=== PATIENT | male | born 1945 | race Caucasian/White ===

== ENCOUNTER 2024-09-12 12:39 | Observation (INO) ==
--- NOTE | 2024-09-12 12:44 | EKG ---
Test Reason : chest pain Blood Pressure : */* mmHG Vent. Rate : 105 BPM Atrial Rate : 105 BPM P-R Int : 216 ms QRS Dur : 130 ms QT Int : 368 ms P-R-T Axes : * -79 81 degrees QTc Int : 486 ms Sinus tachycardia with 1st degree AV block with occasional premature ventricular complexes and fusion complexes Left axis deviation Right bundle branch block Abnormal ECG No previous ECGs available Confirmed by Kelvin Nolen MD ([id number]) on 09/13/2024 7:45:49 AM Referred By: Confirmed By: Kelvin Nolen MD
[2024-09-12 13:21] LABS: BASOPHILS # (AUTO) 0.1 X10^3/uL (0.0-0.1); BASOPHILS % (AUTO) 0.8 % (0.2-1.0); EOSINOPHILS # (AUTO) 0.2 x10^3/uL (0.0-0.2); EOSINOPHILS % (AUTO) 2.7 % (0.9-2.9); HEMATOCRIT 46.8 % (42.0-54.0); HEMOGLOBIN 16.4 g/dL (13.5-18.0); LYMPHOCYTES # (AUTO) 1.6 X10^3/uL (1.3-2.9); LYMPHOCYTES % (AUTO) 17.9 % (21.0-51.0); MEAN CORPUSCULAR HEMOGLOBIN 33.1 pg (27.0-34.0); MEAN CORPUSCULAR HGB CONC 35.1 g/dL (33.0-35.0); MEAN CORPUSCULAR VOLUME 94.3 fL (80.0-100.0); MEAN PLATELET VOLUME 8.4 fL (7.4-11.0); MONOCYTES # (AUTO) 0.8 x10^3/uL (0.3-0.8); MONOCYTES % (AUTO) 8.7 % (0.0-13.0); NEUTROPHILS # (AUTO) 6.3 x10^3/uL (2.2-4.8); NEUTROPHILS % (AUTO) 69.9 % (42.0-75.0); PLATELET COUNT 387 X10^3/uL (150.0-450.0); RED BLOOD COUNT 4.96 X10^6/uL (4.7-6.0); RED CELL DISTRIBUTION WIDTH 12.5 % (11.6-16.5)
--- NOTE | 2024-09-12 13:22 | RAD ---
EXAM:Portable chestHISTORY:Chest painCOMPARISON:NoneFINDINGS:Heart size is normal. [place] are normal. Mild hyperinflation is present. Lung martinez are clear. No pleural effusions identified. Bony thorax is unremarkable.IMPRESSION:Lungs are mildly hyperinflated but clearTHIS IS AN ELECTRONICALLY VERIFIED FINAL REPORT09/12/2024 1:19 PM - Electronically signed by Tobin Sen MD
[2024-09-12 13:23] LABS: INR 1.16 (0.8-1.3)
[2024-09-12 13:29] LABS: ALANINE AMINOTRANSFERASE 353 Units/L (12-78); ALBUMIN 3.7 g/dL (3.4-5.0); ALKALINE PHOSPHATASE 265 Units/L (46-116); ASPARTATE AMINO TRANSFERASE 237 Units/L (15-37); BLOOD UREA NITROGEN 26 mg/dL (7-18); CALCIUM 9.3 mg/dL (8.5-10.1); CHLORIDE 98 mmol/L (98-107); CREATININE 2.52 mg/dL (0.70-1.30); GLUCOSE 109 mg/dL (65-99); MAGNESIUM 2.1 mg/dL (2.0-2.9); POTASSIUM 3.7 mmol/L (3.5-5.1); SODIUM 137 mmol/L (136-145); TOTAL PROTEIN 7.9 g/dL (6.4-8.2); eGFR NON BLACK RACES 26 (>60)
[2024-09-12] MEDS: MYLICON TAB 80 MG CHEW PO ONE (14:38)
--- NOTE | 2024-09-12 14:46 | CT ---
EXAM: CT CHEST, ABDOMEN, AND PELVIS WITHOUT CONTRAST HISTORY: LUQ abd pain; ; CHEST PAIN; COMPARISON: None. TECHNIQUE: Axial CT images were obtained through the chest, abdomen, and pelvis without contrast. Coronal refor matted images were included. All CT scans at this facility use dose modulation, iterative reconstruction, and/or weight based dosi ng when appropriate to reduce radiation dose to as low as reasonably achievable. FINDINGS: Please note that without the use of intravenous contrast, evaluation of organ parenchyma is limited. CHEST: SUPPORT DEVICES: None HEART, VESSELS, AND MEDIASTINUM: Athero sclerotic disease in the coronary vessels. LYMPH NODES: No pathologically enlarged nodes. LUNGS AND PLEURA: Lungs show minimal reticular fibrotic changes at the left lung base. In the right upper lobe, there are scattered areas of scarring and nodularity likely related to previous granuloma tous disease. Noncalcified right upper lobe nodule measures 5 mm image 17. Ground-glass nodule righ t lung base shows a size of 8 mm AIRWAYS: Within normal limits. ABDOMEN: LIVER: Hepatic steatosis GALLBLADDER: Absent SPLEEN: Within normal limits. PANCREAS: Within normal limits. KIDNEYS: Within normal limits. ADRENAL GLANDS: Within normal limits. GI TRACT: Moderate colonic stool. Sigmoid colonic diverticulosis LYMPH NODES: No abnormally enlarged nodes VESSELS: Moderate athero sclerotic disease PERITONEUM / RETROPERITONEUM: No free gas PELVIS: BLADDER: Within normal limits. GENITALS: Prostate is enlarged BONES: Multilevel degenerative changes are seen throughout the spine IMPRESSION: No definite acute abnormality in the chest, abdomen, or pelvis to correlate with the patient's histor y of pain. There are some chronic lung changes noted which favor prior granulomatous disease which a re particularly evident in the right upper lobe. There are some small subcentimeter nodules present. Follow-up as below based on the ground-glass nodule in the right lower lobe. [facility] [employer] P[facility] NODULE RECOMMENDATIONS GROUND GLASS CT in 6 to 12 months to confirm persistence, then CT every 2 years until 5 years. If grows or increasingly solid, consider resection. THIS IS AN ELECTRONICALLY VERIFIED FINAL REPORT 09/12/2024 2:43 PM - Electronically signed by Lobito Araujo MD
[2024-09-12 16:16] LABS: BILIRUBIN,URINE NEGATIVE (NEGATIVE); BLOOD/HEMOGLOBIN,URINE NEGATIVE (NEGATIVE); GLUCOSE, URINE NEGATIVE (NEGATIVE); KETONES,URINE 1+ (NEGATIVE); LEUKOCYTE ESTERASE ,URINE NEGATIVE (NEGATIVE); NITRITES,URINE NEGATIVE (NEGATIVE); PROTEIN,URINE 2+ (NEGATIVE); UROBILINOGEN,URINE NORMAL (NORMAL)
[2024-09-12 16:23] LABS: APPEARANCE,URINE CLEAR (CLEAR); COLOR,URINE YELLOW (YELLOW)
[2024-09-12 16:26] LABS: BACTERIA,URINE NEGATIVE /HPF (NEGATIVE); RBC,URINE NONE SEEN /HPF (0-3); SQUAMOUS EPITHELIAL CELL,UR RARE /HPF (NEGATIVE)
--- NOTE | 2024-09-12 16:43 | DR.CP ---
HPI Time Seen Time Seen by Provider: 09/12/24 13:03 PCP Primary Care Physician: Mikie Drewhear Complaint Chief Complaint Doctor Comments: 79-year-old male, history of atrial fibrillation with prior cardiac ablation, no history of coronary artery disease, complains of intermittent left-sided chest pain for the past 3 hours prior to arrival. Denies radiation of pain. Denies dyspnea. Denies other complaints. Chief Complaint:: Pt presents to ED holding left chest/under left breast. He and state that since Sep 03 he has been having intermittent CP, doesn't radiate to any other location, describes as "stabbed with ice pick". Pt also c/o weakness w/ recent falls and "fast heartrate". Pt has hx of A.Fib w/ ablations x3 in the past. Pt denies SOB (other than his COPD related breathing issues), denies abdominal pain Self Treatment fo Chief Complaint: has not taken any of his meds this AM COVID-19 Coronavirus risk:travel/contact w/high risk person: No Has patient experienced Coronavirus symptoms: No Source History Provided: Patient and Significant Other Mode of Arrival Mode of Arrival: Ambulatory Timing Onset of Chief Complaint: 09/03/24 Associated Signs and Symptoms Associated Signs and Symptoms: None PMH PMH Past Medical History: Yes Past Medical History: COPD and Hypertension Past Medical History Comment: A.Fib, IBS Past Surgical History: Yes Surgical History: Cholecystectomy and Other Past Surgical History Comment: cardiac ablation, back surgery Family History History of Family Medical Conditions: Yes Social History Does patient currently use any type of tobacco product: No Have you used tobacco products in the last 12 months: No Does any household member use tobacco: No Alcohol Use: Occasionally Do you use any recreational Drugs:: No Lives With: Spouse Lives Where: Home Travel Risk Coronavirus risk:travel/contact w/high risk person: No Has patient experienced Coronavirus symptoms: No Infectious screening In the last 2 months have you had wt loss of >10#?: NO Have you had fever, night sweats or hemotysis?: No Have you traveled outside the country in the last 6 months?: No Isolation: Standard ROS Review of Systems Cardiovascular: Chest Pain All Other Systems: Reviewed and Negative PE Vitals Vitals: Vital Signs Temperature 97.8 F Pulse Rate 75 Pulse Rate 79 Pulse Rate 77 Pulse Rate 103 Pulse Rate 75 Pulse Rate 97 Pulse Rate 102 Pulse Rate 112 Pulse Rate 75 Pulse Rate 76 Pulse Rate 78 Pulse Rate 77 Pulse Rate 102 Pulse Rate 106 Pulse Rate 106 Pulse Rate 112 Pulse Rate 112 Respiratory Rate 23 Respiratory Rate 25 Respiratory Rate 21 Respiratory Rate 27 Respiratory Rate 17 Respiratory Rate 30 Respiratory Rate 27 Respiratory Rate 25 Respiratory Rate 15 Respiratory Rate 42 Respiratory Rate 16 Respiratory Rate 21 Respiratory Rate 26 Respiratory Rate 26 Respiratory Rate 29 Respiratory Rate 25 Respiratory Rate 21 Blood Pressure 129/71 Blood Pressure 128/80 Blood Pressure 121/67 Blood Pressure 142/80 Blood Pressure 155/83 Blood Pressure 131/68 Blood Pressure 120/82 Blood Pressure 130/67 Blood Pressure 130/67 O2 Sat by Pulse Oximetry 94 O2 Sat by Pulse Oximetry 95 O2 Sat by Pulse Oximetry 95 O2 Sat by Pulse Oximetry 90 O2 Sat by Pulse Oximetry 93 O2 Sat by Pulse Oximetry 94 O2 Sat by Pulse Oximetry 92 O2 Sat by Pulse Oximetry 92 O2 Sat by Pulse Oximetry 94 O2 Sat by Pulse Oximetry 92 O2 Sat by Pulse Oximetry 93 O2 Sat by Pulse Oximetry 92 O2 Sat by Pulse Oximetry 93 O2 Sat by Pulse Oximetry 93 O2 Sat by Pulse Oximetry 95 O2 Sat by Pulse Oximetry 92 O2 Sat by Pulse Oximetry 95 General Limitations: No Limitations General Appearance: Alert and In No Apparent Distress Head Head Exam: Normal Inspection Eyes Eye exam: Normal Appearance ENT ENT Exam: Normal Exam Chest Chest Inspection: Normal Inspection Respiratory Respiratory Exam: Normal Lung Sounds Bilat Cardiovascular Cardiovascular Exam: Regular Rate and Normal Rhythm Pulse: Normal Edema: Normal Abdominal Exam Abdominal Exam: Normal Inspection, Normal Bowel Sounds and Soft Extremities Extremities Exam: Normal Inspection Back Back Exam: Normal Inspection Neurologic Neurological Exam: Alert and Oriented X3 Psychiatric Psychiatric Exam: Normal Affect and Normal Mood Skin Skin Exam: Warm, Dry, Intact and Normal Color ROR Labs Reviewed 09/12/24 12:54 09/12/24 12:54 Laboratory: WBC 9.0 X10^3/uL (3.6-10.0) 09/12/24 12:54 RBC 4.96 X10^6/uL (4.7-6.0) 09/12/24 12:54 Hgb 16.4 g/dL (13.5-18.0) 09/12/24 12:54 Hct 46.8 % (42.0-54.0) 09/12/24 12:54 MCV 94.3 fL (80.0-100.0) 09/12/24 12:54 MCH 33.1 pg (27.0-34.0) 09/12/24 12:54 MCHC 35.1 g/dL (33.0-35.0) H 09/12/24 12:54 RDW 12.5 % (11.6-16.5) 09/12/24 12:54 Plt Count 387 X10^3/uL (150.0-450.0) 09/12/24 12:54 MPV 8.4 fL (7.4-11.0) 09/12/24 12:54 Neut % (Auto) 69.9 % (42.0-75.0) 09/12/24 12:54 Lymph % (Auto) 17.9 % (21.0-51.0) L 09/12/24 12:54 [place] % (Auto) 8.7 % (0.0-13.0) 09/12/24 12:54 Eos % (Auto) 2.7 % (0.9-2.9) 09/12/24 12:54 Baso % (Auto) 0.8 % (0.2-1.0) 09/12/24 12:54 Neut # (Auto) 6.3 x10^3/uL (2.2-4.8) H 09/12/24 12:54 Lymph # (Auto) 1.6 X10^3/uL (1.3-2.9) 09/12/24 12:54 [place] # (Auto) 0.8 x10^3/uL (0.3-0.8) 09/12/24 12:54 Eos # (Auto) 0.2 x10^3/uL (0.0-0.2) 09/12/24 12:54 Baso # (Auto) 0.1 X10^3/uL (0.0-0.1) 09/12/24 12:54 Absolute Nucleated RBC 0.1 /100WBC 09/12/24 12:54 PT 14.6 SECONDS (11.8-14.3) 09/12/24 12:54 INR Target Range - 09/12/24 12:54 INR 1.16 (0.8-1.3) 09/12/24 12:54 APTT 34.2 SECONDS (22.9-36.5) 09/12/24 12:54 PTT Comment - 09/12/24 12:54 Sodium 137 mmol/L (136-145) 09/12/24 12:54 Corrected Sodium TNP 09/12/24 12:54 Potassium 3.7 mmol/L (3.5-5.1) 09/12/24 12:54 Chloride 98 mmol/L (98-107) 09/12/24 12:54 Carbon Dioxide 27.0 mmol/L (21-32) 09/12/24 12:54 BUN 26 mg/dL (7-18) H 09/12/24 12:54 Creatinine 2.52 mg/dL (0.70-1.30) H 09/12/24 12:54 Est GFR (MDRD) Af Amer 32 (>60) L 09/12/24 12:54 Est GFR (MDRD) Non-Af 26 (>60) L 09/12/24 12:54 Glucose 109 mg/dL (65-99) H 09/12/24 12:54 Calcium 9.3 mg/dL (8.5-10.1) 09/12/24 12:54 Corrected Calcium TNP 09/12/24 12:54 Magnesium 2.1 mg/dL (2.0-2.9) 09/12/24 12:54 Total Bilirubin 1.80 mg/dL (0.2-1.0) H 09/12/24 12:54 AST 237 Units/L (15-37) H 09/12/24 12:54 ALT 353 Units/L (12-78) H 09/12/24 12:54 Alkaline Phosphatase 265 Units/L (46-116) H 09/12/24 12:54 Troponin I High Sens 11.5 ng/L (4.0-60.0) 09/12/24 12:54 Total Protein 7.9 g/dL (6.4-8.2) 09/12/24 12:54 Albumin 3.7 g/dL (3.4-5.0) 09/12/24 12:54 Globulin 4.2 g/dL (2.5-4.5) 09/12/24 12:54 Albumin/Globulin Ratio 0.9 Ratio (1.1-2.1) L 09/12/24 12:54 Specimen Type Clean catch urine 09/12/24 16:00 Urine Color Yellow (YELLOW) 09/12/24 16:00 Urine Appearance Clear (CLEAR) 09/12/24 16:00 Urine pH 5.0 (5.0 - 8.0) 09/12/24 16:00 Ur Specific [place] 1.010 (1.000-1.030) 09/12/24 16:00 Urine Protein 2+ (NEGATIVE) 09/12/24 16:00 Urine Glucose (UA) Negative (NEGATIVE) 09/12/24 16:00 Urine Ketones 1+ (NEGATIVE) 09/12/24 16:00 Urine Blood Negative (NEGATIVE) 09/12/24 16:00 Urine Nitrite Negative (NEGATIVE) 09/12/24 16:00 Urine Bilirubin Negative (NEGATIVE) 09/12/24 16:00 Urine Urobilinogen Normal (NORMAL) 09/12/24 16:00 Ur Leukocyte Esterase Negative (NEGATIVE) 09/12/24 16:00 Urine RBC None seen /HPF (0-3) 09/12/24 16:00 Urine WBC None seen /HPF (0-5) 09/12/24 16:00 Ur Squamous Epith Cells Rare /HPF (NEGATIVE) 09/12/24 16:00 Urine Bacteria Negative /HPF (NEGATIVE) 09/12/24 16:00 Ur Culture Indicated? No/not indicated 09/12/24 16:00 Opioid Opioid Risk Tool Age (Ion box if 16-45): No History of Preadolescent Sexual Abuse: No Total: 0 Total Score Risk Category: Low Risk Copyright: Hai DÍAZ predicting aberrant behaviors Discharge Plan Discharge Plan Patient Disposition: HOME, SELF-CARE Condition: Stable Prescriptions: No Action ondansetron HCl 4 mg tablet 4 mg PO TID PRN telmisartan-hydrochlorothiazid 40-12.5 mg Tablet 1 tab PO BID fluticasone propion-salmeterol 250-50 mcg/dose Blister With Device 1 inh INHALATION BID metoprolol tartrate 25 mg Tablet 25 mg PO BID Eliquis 2.5 mg Tablet 2.5 mg PO BID Orders to Discharge Patient Discharge Orders: Transfer (Routine); Ordered 09/12/24 Ordered By: Omar White
--- NOTE | 2024-09-12 18:17 | EKG ---
Test Reason : chest pain Blood Pressure : */* mmHG Vent. Rate : 103 BPM Atrial Rate : 55 BPM P-R Int : * ms QRS Dur : 112 ms QT Int : 326 ms P-R-T Axes : * -71 -12 degrees QTc Int : 427 ms suspect afib but baseline artifact makes interpretation hard pvcs Left axis deviation Low voltage QRS Inferior infarct , age undetermined Anterolateral infarct , age undetermined Abnormal ECG When compared with ECG of 12-SEP-2024 12:40, (Unconfirmed) Significant changes have occurred Confirmed by Kelvin Nolen MD ([id number]) on 09/13/2024 7:42:11 AM Referred By: Confirmed By: Kelvin Nolen MD
[2024-09-12 18:35] VITALS: BMI 28.6
--- NOTE | 2024-09-12 19:34 | EKG ---
Test Reason : Chest Pain Blood Pressure : */* mmHG Vent. Rate : 82 BPM Atrial Rate : 74 BPM P-R Int : 212 ms QRS Dur : 124 ms QT Int : 402 ms P-R-T Axes : * -42 43 degrees QTc Int : 469 ms Sinus rhythm with 1st degree AV block with frequent premature ventricular complexes Left axis deviation Possible Lateral infarct (cited on or before 12-SEP-2024) Abnormal ECG When compared with ECG of 12-SEP-2024 17:57, (Unconfirmed) Significant changes have occurred Confirmed by Kelvin Nolen MD ([id number]) on 09/13/2024 7:39:23 AM Referred By: Confirmed By: Kelvin Nolen MD
[2024-09-12] MEDS: Atrovent NEB TX 0.02% NEB SCH (20:51)
[2024-09-12] MEDS: PULMICORT NEB TX 0.5 MG NEB SCH (20:52)
[2024-09-12] MEDS ORDERED: PATIENT'S HOME MEDICATION (Fluticasone Propion-Salmeterol 250-50 mcg/dose Blister With Dev IN SCH (21:00)
[2024-09-12] MEDS ORDERED: TELMISARTAN HYDROCHLOROTHIAZID PO SCH (21:00)
[2024-09-12] MEDS ORDERED: PULMICORT NEB TX 0.5 MG NEB SCH (21:00)
[2024-09-12] MEDS ORDERED: PATIENT'S HOME MEDICATION (Apixaban [Eliquis] 2.5 mg Tablet) PO SCH (21:00)
[2024-09-12] MEDS: ELIQUIS PO SCH (21:03)
[2024-09-12] MEDS: LOPRESSOR TAB 25 MG PO SCH (21:03)
[2024-09-13] MEDS: ZOFRAN TAB 4 MG PO PRN (00:22)
[2024-09-13] MEDS ORDERED: ROBITUSSIN DM PO PRN (00:27)
[2024-09-13] MEDS ORDERED: TUSSIONEX PENNKINETIC SUSP PO PRN (00:27)
--- NOTE | 2024-09-13 01:16 | EKG ---
Test Reason : chest pain Blood Pressure : */* mmHG Vent. Rate : 72 BPM Atrial Rate : 72 BPM P-R Int : 250 ms QRS Dur : 136 ms QT Int : 456 ms P-R-T Axes : -22 -76 25 degrees QTc Int : 499 ms Sinus rhythm with 1st degree AV block with fusion complexes Left axis deviation ant mi/prwp nsivcd Abnormal ECG When compared with ECG of 12-SEP-2024 19:13, (Unconfirmed) fusion complexes are now present premature ventricular complexes are no longer present Borderline criteria for Lateral infarct are no longer present Confirmed by Kelvin Nolen MD ([id number]) on 09/13/2024 7:36:07 AM Referred By: Confirmed By: Kelvin Nolen MD
--- NOTE | 2024-09-13 05:28 | EKG ---
Test Reason : Chest Pain Blood Pressure : */* mmHG Vent. Rate : 78 BPM Atrial Rate : 78 BPM P-R Int : 206 ms QRS Dur : 138 ms QT Int : 430 ms P-R-T Axes : 69 -64 84 degrees QTc Int : 490 ms Sinus rhythm with occasional and consecutive premature ventricular complexes and fusion complexes first degree avblock Left axis deviation Nonspecific intraventricular block Possible Anterolateral infarct , age undetermined Abnormal ECG When compared with ECG of 13-SEP-2024 00:59, (Unconfirmed) Significant changes have occurred Confirmed by Kelvin Nolen MD ([id number]) on 09/13/2024 7:34:39 AM Referred By: Confirmed By: Kelvin Nolen MD
[2024-09-13 06:25] LABS: BASOPHILS # (AUTO) 0.1 X10^3/uL (0.0-0.1); BASOPHILS % (AUTO) 0.7 % (0.2-1.0); EOSINOPHILS # (AUTO) 0.3 x10^3/uL (0.0-0.2); EOSINOPHILS % (AUTO) 2.9 % (0.9-2.9); HEMATOCRIT 45.5 % (42.0-54.0); LYMPHOCYTES # (AUTO) 1.8 X10^3/uL (1.3-2.9); LYMPHOCYTES % (AUTO) 20.3 % (21.0-51.0); MEAN CORPUSCULAR HEMOGLOBIN 33.3 pg (27.0-34.0); MEAN CORPUSCULAR HGB CONC 35.2 g/dL (33.0-35.0); MEAN CORPUSCULAR VOLUME 94.8 fL (80.0-100.0); MEAN PLATELET VOLUME 8.4 fL (7.4-11.0); MONOCYTES # (AUTO) 0.9 x10^3/uL (0.3-0.8); MONOCYTES % (AUTO) 9.8 % (0.0-13.0); NEUTROPHILS # (AUTO) 5.9 x10^3/uL (2.2-4.8); NEUTROPHILS % (AUTO) 66.3 % (42.0-75.0); PLATELET COUNT 374 X10^3/uL (150.0-450.0); RED CELL DISTRIBUTION WIDTH 12.9 % (11.6-16.5); WHITE BLOOD COUNT 8.9 X10^3/uL (3.6-10.0)
[2024-09-13 06:29] LABS: INR 1.26 (0.8-1.3)
[2024-09-13 06:49] LABS: ALANINE AMINOTRANSFERASE 311 Units/L (12-78); ALBUMIN 3.5 g/dL (3.4-5.0); ALKALINE PHOSPHATASE 228 Units/L (46-116); ASPARTATE AMINO TRANSFERASE 168 Units/L (15-37); BLOOD UREA NITROGEN 26 mg/dL (7-18); CALCIUM 9.1 mg/dL (8.5-10.1); CARBON DIOXIDE 25.9 mmol/L (21-32); CHLORIDE 98 mmol/L (98-107); CHOL/HDL RATIO 3.8 (0.0-5.0); CHOLESTEROL 159 mg/dL (0-200); CREATININE 2.37 mg/dL (0.70-1.30); GLUCOSE 92 mg/dL (65-99); HDL CHOLESTEROL 42 mg/dL (40-60); POTASSIUM 3.9 mmol/L (3.5-5.1); SODIUM 136 mmol/L (136-145); TOTAL PROTEIN 7.4 g/dL (6.4-8.2); TRIGLYCERIDES 121 mg/dL (0-150); eGFR NON BLACK RACES 28 (>60)
[2024-09-13] MEDS: MICARDIS PO SCH (07:57)
[2024-09-13] MEDS: HYDROCHLOROTHIAZIDE 12.5 MG CAP PO SCH (07:58)
--- NOTE | 2024-09-13 07:58 | RAD ---
EXAM: Portable chest HISTORY: Chest pain COMPARISON: 09/12/2024 FINDINGS: Heart size is normal. [place] are normal. Lungs are hyperinflated but free of acute infiltrates. No pleural effusions are identified. Bony thorax is unremarkable. IMPRESSION: Lungs hyperinflated but free of acute infiltrates, consistent with COPD in the appropriate clinical setting THIS IS AN ELECTRONICALLY VERIFIED FINAL REPORT 09/13/2024 7:48 AM - Electronically signed by Tobin Sen MD
[2024-09-13] MEDS: HYDROCHLOROTHIAZIDE 12.5 MG CAP ONE (08:57)
[2024-09-13] MEDS: MICARDIS ONE (08:58)
[2024-09-13] MEDS: LOPRESSOR TAB 25 MG PO ONE (09:11)
[2024-09-13] MEDS: NORVASC TAB 5 MG PO SCH (09:12)
[2024-09-13] MEDS: NS 1,000 ML IV 1,000 ML IV SCH (09:12)
[2024-09-13] MEDS ORDERED: DEFINITY ONE (12:00)
[2024-09-13] MEDS: MILK OF MAGNESIA PO PRN (15:21)
--- NOTE | 2024-09-13 16:48 | DR.H&P ---
H&P History & Physical for Day of: H&P Date: 09/13/24 Chief Complaint Chief Complaint: chest pain History of Present Illness History of Present Illness: Patient presented from home to the ER due to worsening left lower chest wall pain. Recently had a viral illness before . Was getting weaker with increased dyspnea, chest pain, and increased falls. This was at [place] time. Presented on to another ER and admitted overnight for chest pain rule out. He was evaluated by cardiology in [place], but did not have an echo, NST, or cath. In our ER, he was found to have an DIONICIO with elevated liver enzymes. CT showing atherosclerotic disease in multiple vessels with multilevel DJD of the spine and moderate stool burden in the colon. CT of the chest showed old granulomatous changes with changes of COPD. Vital signs overall stable. This morning he reports that he still has a sharp, piercing pain in the left lateral, lower, anterolateral rib area. Feels like an ice pick is stabbing through his ribs. He is asking about an echo. He denies any worsening dyspnea from his baseline COPD. Denies any abdominal pain other than that this pain feels similar to when he was told he had pancreatitis in the past. Liver enzymes and serum creatinine have dropped some. He did not get IV fluids overnight. ROS: 12 point ROS negative otherwise. PE: Well-developed, well-nourished, elderly male in no acute distress. Hearing intact conversation. Head NCAT. Extraocular movements grossly normal. Speech is clear. Heart regular rate and rhythm with no murmur appreciated. Lungs are clear bilaterally but diminished. Belly is soft, nontender, nondistended with bowel sounds present no fluid wave. Mood and affect are overall appropriate with some anxiousness. Chest wall has normal expansion bilaterally with no tenderness to palpation. Skin appears appropriate in the affected area and across visualized torso and arms. Past Medical History Past Medical History: COPD and Hypertension Past Surgical History Surgical History: Cholecystectomy and Ortho Surgery Family History Family Medical History: Diabetes Mellitus and Cancer Social History Does patient currently use any type of tobacco product: No Have you used tobacco products in the last 12 months: No Type of Tobacco Use: None Does any household member use tobacco: No Alcohol Use: Occasionally Drug Use: None Medications Home Medications: Home Medications Medication Instructions Recorded Confirmed Type apixaban 2.5 mg tablet (Eliquis) 2.5 mg PO BID 09/12/24 09/12/24 History fluticasone 250 mcg-salmeterol 50 1 inh inhalation BID 09/12/24 09/12/24 History mcg/dose blistr powdr for inhalation metoprolol tartrate 25 mg tablet 25 mg PO BID 09/12/24 09/12/24 History ondansetron HCl 4 mg tablet 4 mg PO TID PRN 09/12/24 09/12/24 History telmisartan 40 1 tab PO BID 09/12/24 09/12/24 History mg-hydrochlorothiazide 12.5 mg tablet Allergies Allergies Allergy/AdvReac Type Severity Reaction Status Date / Time amoxicillin Allergy Verified 09/12/24 13:06 Labs 09/13/24 05:35 09/13/24 05:35 Labs: Laboratory WBC 8.9 X10^3/uL (3.6-10.0) 09/13/24 05:35 RBC 4.80 X10^6/uL (4.7-6.0) 09/13/24 05:35 Hgb 16.0 g/dL (13.5-18.0) 09/13/24 05:35 Hct 45.5 % (42.0-54.0) 09/13/24 05:35 MCV 94.8 fL (80.0-100.0) 09/13/24 05:35 MCH 33.3 pg (27.0-34.0) 09/13/24 05:35 MCHC 35.2 g/dL (33.0-35.0) H 09/13/24 05:35 RDW 12.9 % (11.6-16.5) 09/13/24 05:35 Plt Count 374 X10^3/uL (150.0-450.0) 09/13/24 05:35 MPV 8.4 fL (7.4-11.0) 09/13/24 05:35 Neut % (Auto) 66.3 % (42.0-75.0) 09/13/24 05:35 Lymph % (Auto) 20.3 % (21.0-51.0) L 09/13/24 05:35 [place] % (Auto) 9.8 % (0.0-13.0) 09/13/24 05:35 Eos % (Auto) 2.9 % (0.9-2.9) 09/13/24 05:35 Baso % (Auto) 0.7 % (0.2-1.0) 09/13/24 05:35 Neut # (Auto) 5.9 x10^3/uL (2.2-4.8) H 09/13/24 05:35 Lymph # (Auto) 1.8 X10^3/uL (1.3-2.9) 09/13/24 05:35 [place] # (Auto) 0.9 x10^3/uL (0.3-0.8) H 09/13/24 05:35 Eos # (Auto) 0.3 x10^3/uL (0.0-0.2) H 09/13/24 05:35 Baso # (Auto) 0.1 X10^3/uL (0.0-0.1) 09/13/24 05:35 Absolute Nucleated RBC 0.4 /100WBC 09/13/24 05:35 PT 15.5 SECONDS (11.8-14.3) 09/13/24 05:35 INR Target Range - 09/13/24 05:35 INR 1.26 (0.8-1.3) 09/13/24 05:35 APTT 35.6 SECONDS (22.9-36.5) 09/13/24 05:35 PTT Comment - 09/13/24 05:35 Sodium 136 mmol/L (136-145) 09/13/24 05:35 Corrected Sodium TNP 09/13/24 05:35 Potassium 3.9 mmol/L (3.5-5.1) 09/13/24 05:35 Chloride 98 mmol/L (98-107) 09/13/24 05:35 Carbon Dioxide 25.9 mmol/L (21-32) 09/13/24 05:35 BUN 26 mg/dL (7-18) H 09/13/24 05:35 Creatinine 2.37 mg/dL (0.70-1.30) H 09/13/24 05:35 Est GFR (MDRD) Af Amer 34 (>60) L 09/13/24 05:35 Est GFR (MDRD) Non-Af 28 (>60) L 09/13/24 05:35 Glucose 92 mg/dL (65-99) 09/13/24 05:35 Calcium 9.1 mg/dL (8.5-10.1) 09/13/24 05:35 Corrected Calcium TNP 09/13/24 05:35 Magnesium 2.0 mg/dL (2.0-2.9) 09/13/24 05:35 Total Bilirubin 1.80 mg/dL (0.2-1.0) H 09/13/24 05:35 AST 168 Units/L (15-37) H 09/13/24 05:35 ALT 311 Units/L (12-78) H 09/13/24 05:35 Alkaline Phosphatase 228 Units/L (46-116) H 09/13/24 05:35 Creatine Kinase 98 Units/L (39-308) 09/12/24 17:34 Troponin I High Sens 15.3 ng/L (4.0-60.0) 09/13/24 05:35 Total Protein 7.4 g/dL (6.4-8.2) 09/13/24 05:35 Albumin 3.5 g/dL (3.4-5.0) 09/13/24 05:35 Globulin 3.9 g/dL (2.5-4.5) 09/13/24 05:35 Albumin/Globulin Ratio 0.9 Ratio (1.1-2.1) L 09/13/24 05:35 Triglycerides 121 mg/dL (0-150) 09/13/24 05:35 Cholesterol 159 mg/dL (0-200) 09/13/24 05:35 LDL Cholesterol, Calc 93 mg/dL (0-100) 09/13/24 05:35 HDL Cholesterol 42 mg/dL (40-60) 09/13/24 05:35 Cholesterol/HDL Ratio 3.8 (0.0-5.0) 09/13/24 05:35 Specimen Type Clean catch urine 09/12/24 16:00 Urine Color Yellow (YELLOW) 09/12/24 16:00 Urine Appearance Clear (CLEAR) 09/12/24 16:00 Urine pH 5.0 (5.0 - 8.0) 09/12/24 16:00 Ur Specific [place] 1.010 (1.000-1.030) 09/12/24 16:00 Urine Protein 2+ (NEGATIVE) 09/12/24 16:00 Urine Glucose (UA) Negative (NEGATIVE) 09/12/24 16:00 Urine Ketones 1+ (NEGATIVE) 09/12/24 16:00 Urine Blood Negative (NEGATIVE) 09/12/24 16:00 Urine Nitrite Negative (NEGATIVE) 09/12/24 16:00 Urine Bilirubin Negative (NEGATIVE) 09/12/24 16:00 Urine Urobilinogen Normal (NORMAL) 09/12/24 16:00 Ur Leukocyte Esterase Negative (NEGATIVE) 09/12/24 16:00 Urine RBC None seen /HPF (0-3) 09/12/24 16:00 Urine WBC None seen /HPF (0-5) 09/12/24 16:00 Ur Squamous Epith Cells Rare /HPF (NEGATIVE) 09/12/24 16:00 Urine Bacteria Negative /HPF (NEGATIVE) 09/12/24 16:00 Ur Culture Indicated? No/not indicated 09/12/24 16:00 Physical Exam Vital Signs: Vital Signs Temperature 98.1 F Pulse Rate [Brachial] 72 Respiratory Rate 18 Blood Pressure [Right Arm] 112/74 O2 Sat by Pulse Oximetry 90 Assessment/Plan (1) DIONICIO (acute kidney injury): Narrative Support Text: Start IV fluids. Recheck CMP in the morning. Status: Acute (2) Chest pain: Qualifiers: Chest pain type: intercostal pain Qualified Code(s): R07.82 - Intercostal pain Narrative Support Text: Echo today. Not certain if this is related to his COPD, A-fib/cardiac, or GI. We will get a lipase. We will do an echo. Recheck CMP tomorrow. Stay on telemetry. Resume home meds. Status: Acute (3) Paroxysmal A-fib: Narrative Support Text: Resume home meds. Status: Acute (4) Elevated liver enzymes: Narrative Support Text: See above Status: Acute (5) Hepatic steatosis: Narrative Support Text: Would be contributing somewhat to his elevated liver enzymes Status: Acute (6) Essential (primary) hypertension: Narrative Support Text: Home meds. Status: Acute
--- NOTE | 2024-09-13 17:31 | EKG ---
Test Reason : Chest Pain Blood Pressure : */* mmHG Vent. Rate : 68 BPM Atrial Rate : 68 BPM P-R Int : 192 ms QRS Dur : 126 ms QT Int : 460 ms P-R-T Axes : 37 -44 -38 degrees QTc Int : 489 ms Sinus rhythm with occasional premature ventricular complexes Left axis deviation Left bundle branch block Abnormal ECG When compared with ECG of 13-SEP-2024 05:10, Nonspecific T wave abnormality now evident in Inferior leads Confirmed by Kelvin Nolen MD ([id number]) on 09/14/2024 7:54:02 AM Referred By: Confirmed By: Kelvin Nolen MD
[2024-09-13] MEDS: LOPRESSOR TAB 50 MG PO SCH (21:44)
[2024-09-14 06:38] LABS: BASOPHILS # (AUTO) 0.1 X10^3/uL (0.0-0.1); BASOPHILS % (AUTO) 1.5 % (0.2-1.0); EOSINOPHILS # (AUTO) 0.2 x10^3/uL (0.0-0.2); EOSINOPHILS % (AUTO) 3.7 % (0.9-2.9); HEMATOCRIT 39.9 % (42.0-54.0); HEMOGLOBIN 14.1 g/dL (13.5-18.0); LYMPHOCYTES # (AUTO) 1.7 X10^3/uL (1.3-2.9); LYMPHOCYTES % (AUTO) 24.9 % (21.0-51.0); MEAN CORPUSCULAR HEMOGLOBIN 33.5 pg (27.0-34.0); MEAN CORPUSCULAR HGB CONC 35.3 g/dL (33.0-35.0); MEAN PLATELET VOLUME 8.5 fL (7.4-11.0); MONOCYTES # (AUTO) 0.6 x10^3/uL (0.3-0.8); MONOCYTES % (AUTO) 8.8 % (0.0-13.0); NEUTROPHILS # (AUTO) 4.1 x10^3/uL (2.2-4.8); NEUTROPHILS % (AUTO) 61.1 % (42.0-75.0); PLATELET COUNT 293 X10^3/uL (150.0-450.0); RED CELL DISTRIBUTION WIDTH 12.8 % (11.6-16.5); WHITE BLOOD COUNT 6.6 X10^3/uL (3.6-10.0)
[2024-09-14 07:00] LABS: ALANINE AMINOTRANSFERASE 236 Units/L (12-78); ALBUMIN 3.1 g/dL (3.4-5.0); ALKALINE PHOSPHATASE 162 Units/L (46-116); ASPARTATE AMINO TRANSFERASE 112 Units/L (15-37); BLOOD UREA NITROGEN 23 mg/dL (7-18); CALCIUM 8.4 mg/dL (8.5-10.1); CARBON DIOXIDE 25.7 mmol/L (21-32); CHLORIDE 103 mmol/L (98-107); COR CA(FOR HYPOALB) 9.1 mg/dL (8.5-10.1); CREATININE 2.04 mg/dL (0.70-1.30); GLUCOSE 75 mg/dL (65-99); POTASSIUM 3.7 mmol/L (3.5-5.1); SODIUM 139 mmol/L (136-145); TOTAL PROTEIN 6.3 g/dL (6.4-8.2); eGFR NON BLACK RACES 34 (>60)
[2024-09-14 09:53] VITALS: RESP 18
--- NOTE | 2024-09-14 11:33 | PCM.DCPLAN ---
DISCHARGE SUMMARY Admission Date Date of Admission: 09/12/24 Discharge Date Discharge Date: 09/14/24 Admission Diagnoses (1) DIONICIO (acute kidney injury): Status: Acute (2) Chest pain: Status: Acute (3) Paroxysmal A-fib: Status: Chronic (4) Elevated liver enzymes: Status: Acute (5) Hepatic steatosis: Status: Chronic (6) Essential (primary) hypertension: Status: Chronic Discharge Medications Discharge Medications: Home Medication List apixaban 2.5 mg tablet (Eliquis) 2.5 mg PO BID 09/12/24 [History] fluticasone 250 mcg-salmeterol 50 mcg/dose blistr powdr for inhalation 1 inh inhalation BID 09/12/24 [History] metoprolol tartrate 25 mg tablet 25 mg PO BID 09/12/24 [History] ondansetron HCl 4 mg tablet 4 mg PO TID PRN 09/12/24 [History] telmisartan 40 mg-hydrochlorothiazide 12.5 mg tablet 1 tab PO BID 09/12/24 [History] Prescriptions: Hospital Course Vital Signs: Vital Signs Temperature 97.7 F Temperature 97.9 F Pulse Rate [Brachial] 71 Pulse Rate [Brachial] 67 Respiratory Rate 18 Respiratory Rate 21 Blood Pressure [Right Arm] 140/71 Blood Pressure [Right Arm] 138/73 O2 Sat by Pulse Oximetry 92 O2 Sat by Pulse Oximetry 94 Latest Lab Results: Laboratory Last Values WBC 6.6 X10^3/uL (3.6-10.0) 09/14/24 05:16 RBC 4.20 X10^6/uL (4.7-6.0) L 09/14/24 05:16 Hgb 14.1 g/dL (13.5-18.0) 09/14/24 05:16 Hct 39.9 % (42.0-54.0) L 09/14/24 05:16 MCV 95.0 fL (80.0-100.0) 09/14/24 05:16 MCH 33.5 pg (27.0-34.0) 09/14/24 05:16 MCHC 35.3 g/dL (33.0-35.0) H 09/14/24 05:16 RDW 12.8 % (11.6-16.5) 09/14/24 05:16 Plt Count 293 X10^3/uL (150.0-450.0) 09/14/24 05:16 MPV 8.5 fL (7.4-11.0) 09/14/24 05:16 Neut % (Auto) 61.1 % (42.0-75.0) 09/14/24 05:16 Lymph % (Auto) 24.9 % (21.0-51.0) 09/14/24 05:16 [place] % (Auto) 8.8 % (0.0-13.0) 09/14/24 05:16 Eos % (Auto) 3.7 % (0.9-2.9) H 09/14/24 05:16 Baso % (Auto) 1.5 % (0.2-1.0) H 09/14/24 05:16 Neut # (Auto) 4.1 x10^3/uL (2.2-4.8) 09/14/24 05:16 Lymph # (Auto) 1.7 X10^3/uL (1.3-2.9) 09/14/24 05:16 [place] # (Auto) 0.6 x10^3/uL (0.3-0.8) 09/14/24 05:16 Eos # (Auto) 0.2 x10^3/uL (0.0-0.2) 09/14/24 05:16 Baso # (Auto) 0.1 X10^3/uL (0.0-0.1) 09/14/24 05:16 Absolute Nucleated RBC 0.0 /100WBC 09/14/24 05:16 PT 15.5 SECONDS (11.8-14.3) 09/13/24 05:35 INR Target Range - 09/13/24 05:35 INR 1.26 (0.8-1.3) 09/13/24 05:35 APTT 35.6 SECONDS (22.9-36.5) 09/13/24 05:35 PTT Comment - 09/13/24 05:35 Sodium 139 mmol/L (136-145) 09/14/24 05:16 Corrected Sodium TNP 09/14/24 05:16 Potassium 3.7 mmol/L (3.5-5.1) 09/14/24 05:16 Chloride 103 mmol/L (98-107) 09/14/24 05:16 Carbon Dioxide 25.7 mmol/L (21-32) 09/14/24 05:16 BUN 23 mg/dL (7-18) H 09/14/24 05:16 Creatinine 2.04 mg/dL (0.70-1.30) H 09/14/24 05:16 Est GFR (MDRD) Af Amer 41 (>60) L 09/14/24 05:16 Est GFR (MDRD) Non-Af 34 (>60) L 09/14/24 05:16 Glucose 75 mg/dL (65-99) 09/14/24 05:16 Lactic Acid 0.8 mmol/L (0.4-2.0) 09/13/24 08:30 Calcium 8.4 mg/dL (8.5-10.1) L 09/14/24 05:16 Corrected Calcium 9.1 mg/dL (8.5-10.1) 09/14/24 05:16 Magnesium 2.0 mg/dL (2.0-2.9) 09/13/24 05:35 Total Bilirubin 1.30 mg/dL (0.2-1.0) H 09/14/24 05:16 AST 112 Units/L (15-37) H 09/14/24 05:16 ALT 236 Units/L (12-78) H 09/14/24 05:16 Alkaline Phosphatase 162 Units/L (46-116) H 09/14/24 05:16 Creatine Kinase 98 Units/L (39-308) 09/12/24 17:34 Troponin I High Sens 15.3 ng/L (4.0-60.0) 09/13/24 05:35 Total Protein 6.3 g/dL (6.4-8.2) L 09/14/24 05:16 Albumin 3.1 g/dL (3.4-5.0) L 09/14/24 05:16 Globulin 3.2 g/dL (2.5-4.5) 09/14/24 05:16 Albumin/Globulin Ratio 1.0 Ratio (1.1-2.1) L 09/14/24 05:16 Triglycerides 121 mg/dL (0-150) 09/13/24 05:35 Cholesterol 159 mg/dL (0-200) 09/13/24 05:35 LDL Cholesterol, Calc 93 mg/dL (0-100) 09/13/24 05:35 HDL Cholesterol 42 mg/dL (40-60) 09/13/24 05:35 Cholesterol/HDL Ratio 3.8 (0.0-5.0) 09/13/24 05:35 Lipase 97 Units/L (16-77) H 09/13/24 08:30 Specimen Type Clean catch urine 09/12/24 16:00 Urine Color Yellow (YELLOW) 09/12/24 16:00 Urine Appearance Clear (CLEAR) 09/12/24 16:00 Urine pH 5.0 (5.0 - 8.0) 09/12/24 16:00 Ur Specific [place] 1.010 (1.000-1.030) 09/12/24 16:00 Urine Protein 2+ (NEGATIVE) 09/12/24 16:00 Urine Glucose (UA) Negative (NEGATIVE) 09/12/24 16:00 Urine Ketones 1+ (NEGATIVE) 09/12/24 16:00 Urine Blood Negative (NEGATIVE) 09/12/24 16:00 Urine Nitrite Negative (NEGATIVE) 09/12/24 16:00 Urine Bilirubin Negative (NEGATIVE) 09/12/24 16:00 Urine Urobilinogen Normal (NORMAL) 09/12/24 16:00 Ur Leukocyte Esterase Negative (NEGATIVE) 09/12/24 16:00 Urine RBC None seen /HPF (0-3) 09/12/24 16:00 Urine WBC None seen /HPF (0-5) 09/12/24 16:00 Ur Squamous Epith Cells Rare /HPF (NEGATIVE) 09/12/24 16:00 Urine Bacteria Negative /HPF (NEGATIVE) 09/12/24 16:00 Ur Culture Indicated? No/not indicated 09/12/24 16:00 Hospital Course: Patient admitted for DIONICIO, left lower chest wall pain, and elevated liver enzymes. Left chest wall pain improved throughout admission. On the day of discharge it was determined that it was likely musculoskeletal. He was tender to palpation at the site of the "ice pick piercing"sensation. His DIONICIO and liver enzymes improved with hydration but were not back at baseline. Does have a history of fatty liver disease. 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 He is telmisartan and HCTZ will be stopped. He will be discharged on the increased dose of metoprolol and addition of amlodipine. He can follow-up with his PCP for repeat BMP. Discharged home with spouse in improved, stable condition with plans for further outpatient workup.
[2024-09-14 11:56] VITALS: BP 140/67; PULSE 68; TEMP 97.9; O2SAT 94
== END 2024-09-14 15:30 | disposition home or self-care (01) ==
LOC: ER 12:39 → MED/SURG 12:39
PROVIDERS: ADMIT Family Medicine; ATTEND Family Medicine
DX: N17.8 Other acute kidney failure; Z98.890 Other specified postprocedural states; R94.31 Abnormal electrocardiogram [ECG] [EKG]; I48.0 Paroxysmal atrial fibrillation; R07.89 Other chest pain; Z73.89 Other problems related to life management difficulty; K76.0 Fatty (change of) liver, not elsewhere classified; R10.12 Left upper quadrant pain; I10 Essential (primary) hypertension; R74.8 Abnormal levels of other serum enzymes; R07.82 Intercostal pain; Z79.01 Long term (current) use of anticoagulants